=== PATIENT | female | born 1975 | race Caucasian/White ===

== ENCOUNTER 2016-08-31 22:44 | Emergency (ER) | payer OTHER ==
[~2016-08-31] VITALS: Ht 165.1 cm; Wt 77.1 kg
[2016-08-31 22:44] VITALS: BP 140/85; PULSE 111; RESP 18; TEMP 97.5; O2SAT 95
--- NOTE | 2016-08-31 22:44 | NUR ---
Placed in hallway.
--- NOTE | 2016-08-31 22:45 | NUR ---
Pt was stopped for routine traffic stop. Pt requires BA draw and medical clearance due to being diabetic. Will continue to monitor. No other injuries or complaints metioned/noted. No distress noted. AAOx4. [place]divian speaking only.
--- NOTE | 2016-08-31 22:58 | NUR ---
Written and verbal consent obtained from patient for blood alcohol, name and verified by patient. Disinfected patient's skin with iodine that did not contain alcohol or other volatile organic compound. Collected the blood from the subject named by venipuncture, in the presence of Officer with badge number [id number]. Used a sterile, dry hypodermic needle and dry vacuum blood collection. The dry vacuum blood collection was supplied by the officer named above. Withdrew a specimen of blood from R AC of the subject named above. Inverted the blood tube several times to ensure that the preservative and anticoagulant were thoroughly mixed in the blood specimen. I initialed the blood tube label for identification. The labeled blood tube was handed directly to the Officer named above. The blood tube stopper remained in place while I had possession of the blood tube. The Officer placed tube into envelope and sealed it in my presence. Envelope initialed by myself and Officer named above. Patient tolerated well, bandage applied, and bleeding controlled.
--- NOTE | 2016-08-31 23:10 | NUR ---
ER Dr. Aquino at bedside examining patient.
[2016-08-31 23:30] VITALS: BP 140/85; PULSE 111; RESP 18; TEMP 97.5; O2SAT 95
--- NOTE | 2016-08-31 23:30 | NUR ---
Patient given written and verbal discharge instructions in [place] and verbalizes understanding. ER MD discussed with patient the results and treatment provided. Patient in stable condition. ID arm band removed. Patient educated on pain management and to follow up with PMD. Pain Scale 0/10. Opportunity for questions provided and answered.
== END 2016-08-31 23:30 ==
LOC: SED 22:44
DX: Z02.89 Encounter for other administrative examinations (principal); E11.65 Type 2 diabetes mellitus with hyperglycemia
CPT/HCPCS: 82962; 99283